=== PATIENT | female | born 1960 | race Hispanic/Latino ===

== ENCOUNTER 2017-05-03 17:48 | Emergency (ER) | payer OTHER ==
[~2017-05-03] VITALS: Ht 149.9 cm; Wt 52.6 kg
[2017-05-03 18:03] VITALS: BP 118/66
--- NOTE | 2017-05-03 18:29 | ED HAND/WRIST INJURY COMPLAINT ---
History of Present Illness General Chief Complaint: Laceration Procedure Stated Complaint: LAC TO FINGER Source: patient Exam Limitations: no limitations Vital Signs & Intake/Output Vital Signs & Intake/Output Vital Signs Date Time Temp Pulse Resp B/P B/P Pulse O2 O2 Flow FiO2 Mean Ox Delivery Rate 05/03 1958 80 16 99 Room Air 05/03 1839 4.0 05/03 1803 97.7 93 15 118/66 Allergies Coded Allergies: No Known Allergies (05/03/17) Triage Note: PT TO ED FOR LAC TO R FIFTH FINGER S/P ACCIDENTALLY CUTTING IT ON GLASS WHILE MOVING FURNITURE. UNKNOWN LAST TETANUS SHOT. DRESSING APPLIED IN TRIAGE. Triage Nurses Notes Reviewed? yes Occurred: just prior to arrival Duration: hour(s): (1), constant, continues in ED Timing: single episode today Injury Environment: home Severity: moderate, severe Severity Numbers: 4 Pain/Injury Location: Right: 5th finger. Context: laceration Method of Injury: laceration No Modifying Factors: none LMP (ages 10-50): unknown : No Patient currently breastfeeds: No HPI: 57-year-old female with no past medical history presents for evaluation of a laceration to her right fifth digit. Patient states that she was moving furniture that included a large piece of glass. The glass excellently cut the palmar aspect of her right fifth digit. Patient states that the area is painful but she is able to move it. No numbness or tingling. She does not know when her last tetanus shot was. No crush injury or direct trauma. Bleeding was controlled with pressure. She is not on blood thinners. No other injury. He states that the piece of glass was large and did not break and there is very little chance that there could be a small piece of glass in the wound. (Tank Lockett) Past History Travel History Traveled to [place] past 21 day No Medical History Any Pertinent Medical History? see below for history Neurological: NONE EENT: NONE Cardiovascular: NONE Respiratory: NONE Gastrointestinal: NONE Hepatic: NONE Renal: NONE Musculoskeletal: NONE Psychiatric: NONE Endocrine: NONE Blood Disorders: NONE Cancer(s): NONE ASSOCIATE DIRECTOR OF BIOSTATISTICS/Reproductive: NONE Surgical History Surgical History: non-contributory Psychosocial History What is your primary language Swiss Tobacco Use: Never used ETOH Use: denies use Illicit Drug Use: denies illicit drug use Family History Hx Contributory? No (Tank Lockett) Review of Systems Review of Systems Constitutional: Reports: no symptoms. EENTM: Reports: no symptoms. Respiratory: Reports: no symptoms. Cardiovascular: Reports: no symptoms. GI: Reports: no symptoms. Genitourinary: Reports: no symptoms. Musculoskeletal: Reports: no symptoms. Skin: Reports: see HPI (LACERATION ). Neurological/Psychological: Reports: no symptoms. Hematologic/Endocrine: Reports: no symptoms. Immunologic/Allergic: Reports: no symptoms. All Other Systems: Reviewed and Negative (Tank Lockett) Physical Exam Physical Exam General Appearance: well developed/nourished, no apparent distress, alert, awake Head: atraumatic, normal appearance Eyes: Bilateral: normal appearance. Ears, Nose, Throat: hearing grossly normal Neck: normal inspection, full range of motion Cardiovascular/Respiratory: no respiratory distress Elbow Left: normal range of motion, normal inspection Elbow Right: normal range of motion, normal inspection Forearm Left: normal range of motion, normal inspection Forearm Right: normal range of motion, normal inspection Wrist Left: normal range of motion, normal inspection Wrist Right: normal range of motion, SUPERFICIAL ABRASION TO THE RIGHT ANTERIOR WRIST. nO ACTIVE BLEEDING. nOSE OBTAIN A TISSUE. fULL RANGE OF MOTION OF THE WRIST IS INTACT WITHOUT PAIN. nO WRIST SWELLING Hand Left: normal inspection, normal range of motion Hand Right: normal range of motion, 5th finger (LAC), THERE IS A 2 CM LINEAR LACERATION LOCATED ON THE PALMAR ASPECT OF THE PROXIMAL SEGMENT OF THE RIGHT FIFTH DIGIT. sUBCUTANEOUS TISSUE IS VISIBLE. fULL RANGE OF MOTION OF THE DIGIT IS INTACT. sTRENGTH 5 OUT OF 5. nEUROVASCULAR SUPPLY IS INTACT TO THE RIGHT FIFTH DIGIT. Neurologic/Tendon: normal sensation, normal motor functions, normal tendon functions, responds to pain Skin: intact, normal color, warm/dry (Tank Lockett) Progress Differential Diagnosis: compartment syndrome, LACERATION, RETAINED FOREIGN BODY Plan of Care: Orders Procedure Date/time Status XRY-HAND, 3 View RIGHT 05/03 1808 Active Current Medications Sig/Chikis Start time Last Medication Dose Stop Time Status Admin Lidocaine 20 ML ONCE ONE 05/03 1829 UNVr (Lidocaine 1%) 05/03 1830 Patient seen and evaluated. She has a linear laceration to the right fifth digit. The area was cleaned with Betadine and flushed with sterile water. X- ray reveals possible radiopaque foreign bodies in the right thumb. There are no lacerations or abrasions to the thumb. It is unclear where these came from. There are no foreign bodies in the fifth digit near the laceration. The wound was thoroughly explored for foreign bodies none were seen. 1% lidocaine without epi was used for local pain control. 5 4-0 nylon simple interrupted sutures used for approximately. Diagnostic Imaging: Viewed by Me: Radiology Read. Discussed w/RAD: Radiology Read. Radiology Impression: PATIENT: TYE SULLIVAN PRESENT AGE: 57 PATIENT ACCOUNT NO: [id number] : 62 LOCATION: [facility] ORDERING PHYSICIAN: Tank MADERA SERVICE DATE: 05/03/17 EXAM TYPE: RAD - XRY- HAND, RIGHT EXAMINATION: RIGHT HAND 2 VIEWS CLINICAL INFORMATION: Laceration to right first digit. COMPARISON: None. TECHNIQUE: PA and lateral views of the right hand were obtained. FINDINGS: There are no fractures or dislocations. There are several radiopaque foreign bodies about the right thumb. The largest measures approximately 4 mm and is adjacent to the IP joint. IMPRESSION: Several radiopaque foreign bodies identified about the first digit. DICTATED BY: Frantz Hess MD DATE/TIME DICTATED:05/03/171843 RIBBER:YANELI DATE/ TIME TRANSCRIBED:05/03/171843 (Tank Lockett) Departure Departure Disposition: HOME OR SELF CARE Condition: Stable Clinical Impression Primary Impression: Finger laceration Qualifiers: Encounter type: initial encounter Finger: little finger Damage to nail status: without damage Foreign body presence: without foreign body Laterality: left Qualified Code: S61.217A - Laceration without foreign body of left little finger without damage to nail, initial encounter Referrals: Patient Has No Primary Care Dr (PCP/Family) Elie Evans MD Additional Instructions: Keep the area clean and dry. Change dressing once daily. Apply bacitracin once daily for the next 72 hours only. Tylenol ibuprofen as needed for pain. After date 4-5 leave area open to air dry. The stitches need to come out in 7-10 days. [place] for signs of infection like redness swelling discharge pain. Monitor symptoms return with any concerns. Make a follow-up with provided hand surgeon Dr. Evans as soon as possible. Please go over all results of today's visit with your primary care doctor. Contact your primary care doctor to let them know you were here in the emergency room. There may be nonspecific findings which may not be related to your visit today here in the emergency room but may require further evaluation and chronic monitoring by your primary care doctor. If you had a laceration today the chance of foreign body always remains. You should follow-up with your primary care doctor for recheck in 3-5 days for a wound check. If you had an x-ray done there is a chance that a fracture could have been missed on initial read and you should follow-up with your primary care doctor for repeat x-rays if symptoms persist. If your blood pressure was elevated here in the emergency room please have rechecked by her primary care doctor within the next 48 hours by your primary care doctor. If you were prescribed a narcotic here in the emergency room or any type of controlled substances you're not allowed to drive while taking this medication or operate any type of heavy machinery. Narcotics can make you feel lightheaded dizziness nausea and can cause constipation. You may need to potato picker a stool softener. Thank you for choosing [facility] emergency room. Please return to the emergency room immediately if you have any other concerns worsening of symptoms. Departure Forms: Customer Survey General Discharge Information (Tank Lockett) PA/COMMUNICATION SIGNALS INTELLIGENCE Co-Sign Statement Statement: ED Attending supervision documentation- [] I saw and evaluated the patient. I have also reviewed all the pertinent lab results and diagnostic results. I agree with the findings and the plan of care as documented in the PA's/COMMUNICATION SIGNALS INTELLIGENCE's documentation. [X] I have reviewed the ED Record and agree with the PA's/COMMUNICATION SIGNALS INTELLIGENCE's documentation. [] Additions or exceptions (if any) to the PAs/COMMUNICATION SIGNALS INTELLIGENCE's note and plan are summarized below: [] (Jordan HEREDIA,Lenin Valdes) Procedures Laceration/Wound Repair Laceration/Wound Repair: Wound Location: upper extremity Wound's Depth, Shape: linear, subcutaneous Wound Length (cm): 2 Wound Explored: clean, irrigated extensively Irrigated w/ Saline (ccs): 300 Betadine Prep? Yes Anesthesia: 1% lidocaine Volume Anesthetic (ccs): 4 Wound Debrided: minimal Wound Repaired With: sutures Suture Size/Type: 4:0, nylon Number of Sutures: 5 Layer Closure? No Sterile Dressing Applied: Yes Splint Applied? No Tetanus Status: not up to date (Dereck MADERA,Tank)
--- NOTE | 2017-05-03 18:49 | RADIOLOGY REPORT ---
EXAMINATION: RIGHT HAND 2 VIEWS CLINICAL INFORMATION: Laceration to right first digit. COMPARISON: None. TECHNIQUE: PA and lateral views of the right hand were obtained. FINDINGS: There are no fractures or dislocations. There are several radiopaque foreign bodies about the right thumb. The largest measures approximately 4 mm and is adjacent to the IP joint. IMPRESSION: Several radiopaque foreign bodies identified about the first digit.
== END 2017-05-03 20:06 ==
LOC: ERH 17:48
DX: S61.217A Laceration without foreign body of left little finger without damage to nail, initial encounter (principal); W25.XXXA Contact with sharp glass, initial encounter; Y93.89 Activity, other specified; Y92.9 Unspecified place or not applicable
CPT/HCPCS: 73130-RT; 90471; 90714

== ENCOUNTER 2017-05-19 08:29 | Emergency (ER) | payer OTHER ==
[~2017-05-19] VITALS: Ht 149.9 cm; Wt 52.6 kg
[2017-05-19 08:34] VITALS: BP 108/70
--- NOTE | 2017-05-19 08:42 | ED ANIMAL BITE/WOUND CHECK ---
History of Present Illness General Chief Complaint: Suture Removal/Wound Recheck Stated Complaint: SUTURE REMOVAL AND WANTS SUTURE REMOVED FOR OPERAT Source: patient, old records, friend Exam Limitations: no limitations Vital Signs & Intake/Output Vital Signs & Intake/Output Vital Signs Date Time Temp Pulse Resp B/P B/P Pulse O2 O2 Flow FiO2 Mean Ox Delivery Rate 05/19 0834 97.4 84 18 108/70 98 Room Air Allergies Coded Allergies: No Known Allergies (05/03/17) Triage Note: PT HERE FOR SUTURE REMOVAL RIGHT HAND. Triage Nurses Notes Reviewed? yes Onset: Abrupt Duration: week(s): (2), better, continues in ED Timing: single episode today Injury Environment: home Is Injury an Animal Bite? No No Modifying Factors: none : No HPI: 57-year-old female no past mental history of present for suture removal. She was seen here about 2 weeks ago for a laceration to the right hand. Sutures are placed. Patient has been keeping the area clean and dry. There is been no discharge erythema or fever. No pain. She also reports that she had surgery on her bilateral second toes over a month ago and never went back to get the sutures removed. She is requesting that we remove the sutures today. (Tank Lockett) Past History Travel History Traveled to [place] past 21 day No Medical History Any Pertinent Medical History? see below for history Neurological: NONE EENT: NONE Cardiovascular: NONE Respiratory: NONE Gastrointestinal: NONE Hepatic: NONE Renal: NONE Musculoskeletal: NONE Psychiatric: NONE Endocrine: NONE Blood Disorders: NONE Cancer(s): NONE THERMOSTAT REPAIRER/Reproductive: NONE Tetanus Vaccine: 05/03/17 Surgical History Surgical History: non-contributory Psychosocial History What is your primary language Vietnamese Tobacco Use: Never used ETOH Use: denies use Illicit Drug Use: denies illicit drug use Family History Hx Contributory? No (Tank Lockett) Review of Systems Review of Systems Constitutional: Reports: no symptoms. EENTM: Reports: no symptoms. Respiratory: Reports: no symptoms. Cardiovascular: Reports: no symptoms. GI: Reports: no symptoms. Genitourinary: Reports: no symptoms. Musculoskeletal: Reports: no symptoms. Skin: Reports: see HPI. Neurological/Psychological: Reports: no symptoms. Hematologic/Endocrine: Reports: no symptoms. Immunologic/Allergic: Reports: no symptoms. All Other Systems: Reviewed and Negative (Tank Lockett) Physical Exam Physical Exam General Appearance: well developed/nourished, no apparent distress, alert, awake Head: atraumatic, normal appearance Eyes: Bilateral: normal appearance. Ears, Nose, Throat: hearing grossly normal Neck: normal inspection, supple, full range of motion Respiratory: no respiratory distress Peripheral Pulses: 2+ radial (R), 2+ radial (L) Extremities: SUTURES ARE PRESENT AND RIGHT HAND LACERATION. cLEAN DRY AND INTACT. nO UNDERLYING ERYTHEMA DISCHARGE OR PAIN. fULL RANGE OF MOTION AND IS INTACT. tHERE ARE ALSO SUTURES PRESENT OVER THE DORSAL ASPECT OF THE BILATERAL SECOND TOES. tHESE ARE CLEAN DRY AND INTACT WITHOUT ERYTHEMA OR DISCHARGE FOR RANGE MOTION OF THE TOE IS INTACT NEUROVASCULAR SUPPLY INTACT Neurologic/Psych: no motor/sensory deficits, awake, alert, oriented x 3 Skin: intact, normal color, warm/dry (Tank Lockett) Progress Differential Diagnosis: abscess, cellulitis, joint infection, tenosysnovitis Plan of Care: SUTURES REMOVED without difficulty from the hand and bilateral toes. Patient tolerated well. No signs of infection. Advised patient to keep the area clean and dry. Follow-up with talent associate. [place] for signs infection. Patient appears well agrees the plan. (Tank Lockett) Departure Departure Disposition: HOME OR SELF CARE Condition: Stable Clinical Impression Primary Impression: Encounter for removal of sutures Referrals: Patient Has No Primary Care Dr (PCP/Family) Additional Instructions: Keep the area clean and dry. [place] for signs of infection like redness swelling discharge or pain. Make a follow-up appointment with your talent associate as soon as possible. Monitor symptoms return with any concerns. Departure Forms: Customer Survey General Discharge Information (Tank Lockett) PA/CUSTOMER SERVICE SALES ASSOCIATE Co-Sign Statement Statement: ED Attending supervision documentation- [] I saw and evaluated the patient. I have also reviewed all the pertinent lab results and diagnostic results. I agree with the findings and the plan of care as documented in the PA's/CUSTOMER SERVICE SALES ASSOCIATE's documentation. [X] I have reviewed the ED Record and agree with the PA's/CUSTOMER SERVICE SALES ASSOCIATE's documentation. [] Additions or exceptions (if any) to the PAs/CUSTOMER SERVICE SALES ASSOCIATE's note and plan are summarized below: [] (Zane Jeter DO
== END 2017-05-19 08:57 ==
LOC: ERH 08:29
DX: Z48.02 Encounter for removal of sutures (principal)